=== PATIENT | male | born 1975 | race Caucasian/White ===

== ENCOUNTER 2017-05-08 23:27 | Emergency (ER) | payer OTHER | END 2017-05-09 01:11 | disposition home or self-care (01) | LOC: ER 23:27 | DX: S23.3XXA Sprain of ligaments of thoracic spine, initial encounter (principal); S30.0XXA Contusion of lower back and pelvis, initial encounter; W19.XXXA Unspecified fall, initial encounter; Y93.H2 Activity, gardening and landscaping; I10 Essential (primary) hypertension; Z90.81 Acquired absence of spleen; Z86.19 Personal history of other infectious and parasitic diseases; Z90.411 Acquired partial absence of pancreas; Z88.6 Allergy status to analgesic agent | CPT/HCPCS: 72070; 72100; 96372; 99283-25; J2270 ==